=== PATIENT | male | born 1995 | race Caucasian/White ===

== ENCOUNTER 2024-03-01 08:28 | Inpatient (IN) | payer MEDICAID, OTHER, SELFPAY ==
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
[2024-03-01] MEDS: LORazepam 2 MG/ML VIAL IM (09:09)
[2024-03-01] MEDS: diphenhydrAMINE HCL 50 MG/ML VIAL 25 MG IM (09:09)
[2024-03-01] MEDS: Haloperidol Lactate 5 MG/ML VIAL IM (09:09)
[2024-03-01 09:13] VITALS: RESP 18; BMI 25.1
[2024-03-01 09:19] VITALS: RESP 18
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
[2024-03-01 10:30] VITALS: RESP 18
--- NOTE | 2024-03-01 10:35 | PC.NURSE ---
unable to obtain med history from patient at this time due to patient condition, attempt may be made later when patient is awake and cooperative
[2024-03-01 12:05] VITALS: RESP 18
[2024-03-01 14:08] VITALS: RESP 20
--- NOTE | 2024-03-01 14:09 | PC.NURSE ---
Patient continues to sleep, respirations even and unlabored. This RN attempted to wake patient for vital signs however, patient sleeping very deep, snoring loudly, will hold off on full set of vitals to avoid angering/triggering patient. CARE team and provider aware
[2024-03-01 15:48] VITALS: RESP 18
--- NOTE | 2024-03-01 16:23 | PC.NURSE ---
Patient refusing vital signs. Patient seen moving around in bed on security camera however, when this RN approached patient in his room, he lays still, appears to be pretending to sleep. Unable to obtain full sets of vital signs, complete lab work or do other parts of our assessment at this time. Provider aware, CARE team aware. Resting silently on stretcher, respirations observed to be even and unlabored, no apparent distress at this time
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
--- NOTE | 2024-03-01 23:53 | PC.NURSE ---
Assumed care of pt at 2300. PT currently laying in bed, eyes closed and appears to be sleeping. Plan of care on going.
[2024-03-02] VITALS (15 sets, daily range): BP systolic 149; BP diastolic 90–93; PULSE 64–74; RESP 16–18; TEMP 36.6; O2SAT 96–100
--- NOTE | 2024-03-02 05:29 | PC.NURSE ---
PT appeared to be sleeping throughout the night, no behavioral issues as of this time. Plan of care ongoing.
--- NOTE | 2024-03-02 05:31 | PC.NURSE ---
PT appeared to be sleeping throughout the night, eyes closed, Resp even and unlabored. No behavioral issues as of this time. Plan of care ongoing.
[2024-03-02] MEDS: LORazepam 2 MG/ML VIAL IM (07:00)
[2024-03-02] MEDS: Haloperidol Lactate 5 MG/ML VIAL 10 MG IM (07:00)
[2024-03-02] MEDS: diphenhydrAMINE HCL 50 MG/ML VIAL IM (07:00)
--- NOTE | 2024-03-02 07:37 | PC.NURSE ---
At 0650 the patient was observed with escalating behaviors that were destructive to self, others and milieu. The patient became aggressive and demanding with staff. Security heard the commotion from their office and entered the pod for support. The patient was observed flipping a chair in his room. The MD arrived in the pod and attempted to therapeutically communicate with the patient who was not receptive. When trying to communicate with the patient he became very agitated and threatening, lunging at a member of security. At that point it became necessary to restrain the patient in 4-point Velcro restraints for safety. The MD ordered Ativan 2mg IM once, Haldol 10mg IM once and Benadryl 50mg IM once. Medication was administered to the patient without harm to the patient or staff. At this time the patient remains in restraints for safety. Will continue plan of care.
--- NOTE | 2024-03-02 08:16 | PC.NURSE ---
Addendum entered by Toma Resendez 03/02/24 08:19: patient repeatedly offered food/drink. Patient refused from this RN. circulation checked in extremities, no issues noted. Patient reporting increased anxiety. This RN attempted to verbally de-escalate patient and explain the criteria for restraint release such as calm behaviors, and non-threatening conversation. This RN turned TV on for patient as distraction. Original Note: patient continues to exhibit unsafe behaviors. Attempting to slip out of restraints. At approximately 0805 patient slipped hand out of left upper extremity restraint and began attempting to take the upper right extremity restraint off. Partha PCT and security at bedside immediately to re-restraint patient. Patient continues to be verbally threatening, uncooperative. patient is of substantial risk for elopement or staff harm if released from restraints at this time. OLEG Dumont and MD aware and in agreeance with plan of care for patient remain in restraints until more calm.
--- NOTE | 2024-03-02 08:29 | PC.NURSE ---
Patient continuing to verbally escalate, OLEG Dumont requested additional medication from . Dr. Romo ordered 10mg IM Zyprexa.
[2024-03-02] MEDS: OLANZapine 10 MG VIAL IM (08:30)
--- NOTE | 2024-03-02 08:30 | PC.NURSE ---
At 0825 the patient was observed to be agitated, verbally aggressive and threatening. The patient was already in 4-point Velcro restraints, but continually attempts to slip restraints with 1 successful attempt, remove his left hand. Security and staff were able to safely re-restrain the patients left hand. The patient was then observed to intermittently bang his head against the wall. The MD was made aware of the patients presentation and behavior. MD ordered Zyprexa 10mg IM once. Medication was administered safely without incident. Will continue with plan of care.
--- NOTE | 2024-03-02 09:20 | PC.NURSE ---
0915: Patient continues to be verbally aggressive, attempting to remove restraints. BRANDI Chavis in patient's room attempting to take vital signs. patient unwilling to stay still enough for vital signs, unable to obtain pulse ox or blood pressure. Patient yelling let me the fuck out of here . Partha pipe testing technician attempted to explain process for restraint release with this RN however, patient continues to yell over staff
[2024-03-02] MEDS: Ketamine HCl 500 MG/5 ML VIAL 50 MG IM (09:40)
[2024-03-02 10:05] LABS: MANUAL DIFF FLAG NO
[2024-03-02 10:06] LABS: Basophils Percent Auto 0.3 % (0-2); Eosinophils Percent Auto 0.3 % (0-4); Hematocrit 44.8 % (42.0-52.0); Hemoglobin 15.2 g/dl (14.0-18.0); Imm Gran Abs Auto 0.04 X10*3/uL (0.00-0.03); Imm Gran Pct Auto 0.3 % (0.0-0.4); Lymphocytes Absolute Auto 1.2 X10*3/uL (1.2-4.9); Lymphocytes Percent Auto 9.2 % (20-40); Mean Corpuscular HGB Conc 33.9 g/dl (31.0-36.0); Mean Corpuscular Hemoglobin 28.7 pg (27.0-33.0); Mean Corpuscular Volume 84.5 fL (80.0-98.0); Mean Platelet Volume 8.9 fL (9.4-12.4); Monocytes Absolute Auto 0.4 X10*3/uL (0.1-1.2); Monocytes Percent Auto 3.1 % (2-11); Neutrophils Absolute Auto 10.9 x10*3/uL (2.0-8.3); Neutrophils Percent Auto 86.8 % (45-73); Platelet Count 343 X10*3/uL (160-400); Red Cell Distribution Width 13.4 % (11.0-16.0); White Blood Count 12.6 X10*3/uL (4.8-10.8)
[2024-03-02 10:40] LABS: Alanine Aminotransferase 19 U/L (0-40); Albumin Level 4.4 g/dL (3.5-5.0); Alkaline Phosphatase 93 U/L (39-117); Anion Gap 14 (12-20); Aspartate Amino Transferase 50 U/L (5-37); Bilirubin Total 0.4 mg/dL (0.0-1.0); Blood Urea Nitrogen 9 mg/dL (9-16); Calcium 9.7 mg/dL (8.4-10.2); Carbon Dioxide 26 mmol/L (22-29); Chloride 108 mmol/L (96-108); Creatinine Clr Calc Pharmacy 128.5; Estimated Glomerular Filt Rate > 60; Ethanol < 10 mg/dL; Glucose Random 105 mg/dL (60-115); Magnesium 2.2 mg/dL (1.6-2.6); Potassium 3.6 mmol/L (3.3-5.1); Salicylate < 5.0 mg/dL (15-30); Sodium 144 mmol/L (135-145); Total Protein 7.9 g/dL (6.5-8.0)
[2024-03-02 10:42] LABS: COVID-19 Test Negative (Negative); IDNOW Serial# 08D9AD1C
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
--- NOTE | 2024-03-02 12:00 | PC.NURSE ---
RE: Restraint Episode Length of time in restraints: 3 hours 15 minutes Medications administered: -0700: 2mg Ativan IM, 10mg Haldol IM, 50 mg Benadryl IM -0830: 10mg Zyprexa IM -939: 50 mg Ketamine IM Summary: Patient woke up at approximately 0645, ambulated independently to the bathroom, while in the bathroom, was verbally escalating and screaming I need to get the fuck outta here, yall motherfuckers gotta let me out . Pt exited bathroom and began yelling staff, demanding to be let out. Security present. This RN spoke with Dr. Angel who ordered IM medications and came to speak with patient. Patient continued to verbally escalate, with security and MD. Patient lunged at security staff member and patient was subsequently four point restrained. Over the first hour of being restrained patient continued to be verbally aggressive and threatening towards staff, threatening to harm himself. He was also observed attempting to break out of the restraints. This RN and Tim RN approached patient multiple different times to attempt to verbally de-escalate patient. This RN loosened upper restraints for circulation. At about 0805, patient slipped out of his upper left extremity restraint, Partha simulation tech and security at bedside an re-restrained the patient. Patient continued to be verbally threatening, attempting to remove restraints. MD Galey aware and at bedside to evaluate patient. placed order for 10mg Zyprexa IM to be given to attempt to calm patient down. Patient received medication and continued to yell at staff, requesting to be let out. Staff encouraged him to practice breathing techniques to manage anxiety and provided him with water. Patient continued to try to remove himself from restraints despite verbally redirection. Occasionally taking breaks and laying down but continued to whip arms and legs around attempting to remove restraints. Patient attempted to hit back of the head on the wall, pillow placed between him and the wall to prevent injury. At around 0930, was consulted for additional medication due to additional increased agitation. MD came to speak with patient, patient refusing to participate in assessment or conversation, continually yelling get me the fuck out of these restraints . explained criteria for restraint release, pt unwilling to participate in conversation once again. ordered 50mg IM Ketamine. Tim RN, this RN and security at bedside for administration. Patient received IM and started to calm down. Once patient was calm enough, this RN corie his blood work without issue and took vital signs. At 1000, upper extremity restraints removed by security at 1008, lower extremity restraints removed by this RN At around 1023, this RN attempted to take another blood pressure, patient awakened easily and refused blood pressure, allowed this RN to take pulse ox Patient continues to sleep at this time, although easily awakened, no apparent distress is noted, patient provided with water at bedside and blanket. Continue plan of care for patient to remain on Section 12a for safety
--- NOTE | 2024-03-02 12:25 | PC.NURSE ---
Patient's mother stopped by asked if she could bring him a cake and balloons for his birthday. This RN let mother know that right now is not ideal for a visit and that she unfortunately cannot bring in a cake/balloons. Mother understanding of situation. Left her number with this RN [phone]
--- NOTE | 2024-03-02 17:45 | PC.NURSE ---
Patient ambulated to bathroom independently, refused urine sample, ambulated back to room and went back to sleep, respirations even and unlabored, no apparent distress noted
--- NOTE | 2024-03-02 19:04 | PC.NURSE ---
patient appears to remain at rest at present respirations are even and unlabored patient appears in no distress.
[2024-03-03] VITALS (7 sets, daily range): BP systolic 119–134; BP diastolic 86–90; PULSE 88–99; RESP 16–18; TEMP 36.6–37.1; O2SAT 96–100; BMI 24.7
--- NOTE | 2024-03-03 | ECG_ITS ---
Test Reason : check qt Blood Pressure : / mmHG Vent. Rate : 065 BPM Atrial Rate : 065 BPM P-R Int : 148 ms QRS Dur : 088 ms QT Int : 396 ms P-R-T Axes : 063 066 042 degrees QTc Int : 411 ms Normal sinus rhythm Normal ECG When compared with ECG of 25-MAY-2015 10:31, No significant change was found Referred By: Tatyana Loera Electronically Signed By:BISHOP DIETZ MD
[2024-03-03 08:29] LABS: Amphetamine Screen Urine Not Detected (Not Detect); Barbiturates, Urine Not Detected (Not Detect); Benzodiazepines Screen Urine Not Detected (Not Detect); Buprenorphine Scr Not Detected (Not Detect); Cannabinoid Screen Urine POSITIVE (Not Detect); Cocaine Screen Urine POSITIVE (Not Detect); Fentanyl, urine POSITIVE (Not Detect); Methadone Screen, Urine Not Detected (Not Detect); Opiate Screen Urine Not Detected (Not Detect); Oxycodone Screen Urine Not Detected (Not Detect); Phencyclidine Screen Urine Not Detected (Not Detect)
[2024-03-03 08:32] LABS: Appearance Urine Clear; Color Urine Dark Yellow; Glucose Urine UA Negative (Negative); Leukocyte Esterase Urine Trace (Negative); Nitrite Urine Negative (Negative); Specific Gravity - Urine >= 1.030 (1.005-1.025); UMIC TRIGGER UACC YES; Urine Blood Negative (Negative); Urine Ketones >=160 mg/dL (Negative); Urine Protein Trace mg/dL (Neg-Trace)
[2024-03-03 08:37] LABS: Bacteria Urine None Seen (None Seen); Hyaline Casts Urine 0-2 /LPF (0-2); RBC Urine 0-2 /HPF (0-2); Squamous Epithelial Cell Urine 0-2 /HPF (0-2); UACC Culture Trigger YES
[2024-03-03] MEDS: hydrOXYzine HCL 25 MG TABLET PO (15:46)
--- NOTE | 2024-03-03 15:49 | PC.NURSE ---
Pt reported tightness in neck, difficulty talking and sore throat. No visible signs of anaphylaxis noted. Jean-Pierre Triplett MD made aware, Hydroxyzine given per Uziel. Pt took without issue.
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
[2024-03-04 07:57] VITALS: BP 131/78; PULSE 90; RESP 16; TEMP 36.7; O2SAT 97
[2024-03-04 09:00] LABS: Estimated Average Glucose 100 mg/dL; Hemoglobin A1c % 5.1 % (<6.0)
[2024-03-04 09:18] LABS: Cholesterol 144 mg/dL (<200); HDL Cholesterol 38 mg/dL (>40); LDL Cholesterol Calculated 85 mg/dL (<100); Triglycerides 109 mg/dL (<150)
[2024-03-04 09:33] LABS: Free T4 (Free Thyroxine) 0.85 ng/dL (0.71-1.85); Thyroid Stimulating Hormone 0.66 uIU/mL (0.32-4.0)
[2024-03-04 09:47] LABS: Folate 6.7 ng/mL (> or = 4.0); Vitamin B12 887 pg/mL (200-900)
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
== END 2024-03-04 14:21 | disposition home or self-care (01) | DRG 773 ==
LOC: HO.ED 03-02 06:52 → HO.PADLT16 03-03 13:48
PROVIDERS: Emergency Medicine; Physician Assistant Medical; Admitting Provider Psychiatry & Neurology Psychiatry; Emergency Provider Emergency Medicine Emergency Medical Services; Visit Provider Psychiatry & Neurology Psychiatry
DX: F19.959 Other psychoactive substance use, unspecified with psychoactive substance-induced psychotic disorder, unspecified (principal); F11.90 Opioid use, unspecified, uncomplicated; R45.851 Suicidal ideations; F14.90 Cocaine use, unspecified, uncomplicated; F12.90 Cannabis use, unspecified, uncomplicated; Z20.822 Contact with and (suspected) exposure to COVID-19
CPT/HCPCS: 36415; 80053; 80061; 80179; 80307; 81001; 82607; 82746; 83036; 83735; 84439; 84443; 85025; 87086; 87635; 93005; 99285; J1200; J1630; J2060; J2359; S9485

== ENCOUNTER → 2024-03-01 14:45 | Outpatient (BNV) | payer OTHER, SELFPAY | PROVIDERS: Emergency Provider Emergency Medicine Emergency Medical Services; Visit Provider Psychiatry & Neurology Psychiatry | DX: F19.959 Other psychoactive substance use, unspecified with psychoactive substance-induced psychotic disorder, unspecified (principal) | CPT/HCPCS: 99233; 99499 ==

== ENCOUNTER → 2024-03-03 11:05 | Outpatient (BNV) | payer MEDICAID, SELFPAY | PROVIDERS: Admitting Provider Psychiatry & Neurology Psychiatry; Emergency Provider Emergency Medicine Emergency Medical Services; Visit Provider Internal Medicine Cardiovascular Disease | DX: Z51.81 Encounter for therapeutic drug level monitoring (principal) | CPT/HCPCS: 93010 ==

== ENCOUNTER 2024-03-09 18:16 | Emergency (ER) | payer OTHER, SELFPAY ==
[2024-03-09] MEDS: Haloperidol Lactate 5 MG/ML VIAL IM (18:56)
[2024-03-09] MEDS: diphenhydrAMINE HCL 50 MG/ML VIAL IM (18:56)
[2024-03-09] MEDS: LORazepam 2 MG/ML VIAL IM (18:56)
[2024-03-09 19:00] VITALS: BP 129/41; PULSE 120; RESP 20; O2SAT 99
[2024-03-09 19:10] VITALS: BP 146/70; PULSE 126; O2SAT 100
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
[2024-03-09 19:15] VITALS: BP 134/78; PULSE 108; RESP 18; O2SAT 96
[2024-03-09 19:55] VITALS: BMI 29.9
--- NOTE | 2024-03-09 19:56 | PC.NURSE ---
Assumed care for pt at 1900. Pt is in four point restraints with 1:1 sitter at bedside. At 1920 all restraints removed as pt is sleeping at the bedside with no signs of aggression or combative. +CMS. No injuries to extremities. At 1930 change director completed by security. Black sock with hard substance inside removed from pts underwear by security. Pts belongings secured in locker.
[2024-03-09 20:56] VITALS: BP 152/92; PULSE 94; RESP 14; O2SAT 99
--- NOTE | 2024-03-10 00:38 | PC.NURSE ---
Pt is awake, calm, and ambulating with steady gait to the bathroom. Declined to provide urine sample at this time. Pt returned to the bedside with no incidence. Monitoring is ongoing.
--- NOTE | 2024-03-10 01:28 | ED.PSYCH ---
HPI - Psych General Chief Complaint: Psychiatric Symptoms Stated Complaint: SECT 12, CRISIS, PD ON BOARD,PT. RESTRAINED Time Seen by Provider: 03/09/24 18:25 Source: patient and EMS Mode of arrival: EMS Limitations: other History of Present Illness HPI Narrative: Patient with substance induced psychotic disorder using cocaine and fentanyl was seen here on 03/02 admitted discharged section 12 in the community as he was acting vague jumping on the roof of condo aggressive and combative denied any PCP use denied any SI wanted to talk to psychiatrist denied SI Related Data Home Medications ?Medication ?Instructions ?Recorded ?Confirmed No Known Home Meds 03/04/24 03/04/24 Allergies Allergy/AdvReac Type Severity Reaction Status Date / Time No Known Allergies Allergy Verified 03/09/24 19:56 Review of Systems Review of Systems: Yes Other (Patient refused) [facility] Social History Social History Household Members: Other Household Members Other:: mom Housing: Apartment Do you presently have visiting nurse or other home services: No Unable to assess alcohol history related to: Refusing to respond Patient Tobacco Use Status: Never used Tobacco e-Cigarette/Vaping Use: Never Used Substance Use Type: Crack/Cocaine, Marijuana and Other Advance Directives: No Advance Directives Information Provided: No service: No Sexual orientation: Straight/Heterosexual Physical Exam Vital Signs: Vital Signs: Last Vital Signs Pulse 94 03/09/24 20:56 Resp 14 03/09/24 20:56 BP 152/92 H 03/09/24 20:56 Pulse Ox 99 03/09/24 20:56 O2 Del Method Room Air 03/09/24 20:56 BMI result Body Mass Index 29.9 Appearance: Alert. Oriented X3. No acute distress. Aggressive noncompliant during examination Eyes: PERRLA, No Nystagmus ENT: Pharynx normal. Oral Mucosa moist Neck: Normal inspection. Neck supple. CVS: Normal heart rate and rhythm. Pulses normal. Respiratory: No respiratory distress. Equal air entry bilateral, no wheezing/rales/rhonchi Abdomen: Soft and nontender. Bowel sounds are present, no mass palpable, no CVA tenderness Skin: Skin warm and dry. Normal skin color. Normal skin turgor. Extremities: No lower extremity edema. No calf tenderness psych: Agitated denies any hallucination or SI Neuro: Oriented X 3. No motor deficit. No sensory deficit.No cerebellar signs , cranial nerves II-XII intact Medications Administered Discontinued Medications Generic Name Dose Route Start Last Admin Trade Name Lindsay PRN Reason Stop Dose Admin Diphenhydramine HCl 50 mg 03/09/24 18:44 03/09/24 18:56 Diphenhydramine Hcl 50 Mg/Ml Vial IM 03/09/24 18:45 50 mg ONCE ONE Administration Haloperidol Lactate 5 mg 03/09/24 18:44 03/09/24 18:56 Haloperidol Lactate 5 Mg/Ml Vial IM 03/09/24 18:45 5 mg ONCE ONE Administration Lorazepam 2 mg 03/09/24 18:44 03/09/24 18:56 Lorazepam 2 Mg/Ml Vial IM 03/09/24 18:45 2 mg ONCE ONE Administration Medical Decision Making Medical Decision Making [facility] Narrative: Patient with substance induced psychotic disorder will get care team involved previously patient's urine positive positive for fentanyl and cocaine patient denied any use of PCP will get care team involved already has Section 12 Discharge Plan Discharge Clinical Impression: Substance-induced psychotic disorder Patient Disposition: Still a Patient Prescriptions: No Action No Known Home Meds Print Language: Italian
[2024-03-10 02:00] VITALS: RESP 14
--- NOTE | 2024-03-10 02:07 | PC.NURSE ---
Pt sleeping at the bedside. No apparent distress noted. Breaths are even regular and unlabored. Monitoring is ongoing.
--- NOTE | 2024-03-10 06:53 | PC.NURSE ---
Assumed care of patient. Patient is observed sleeping in his bed. No distress observed. Breathing is even and unlabored. Will continue plan of care.
--- NOTE | 2024-03-10 09:34 | PC.NURSE ---
Behavioral Observation Patient woke up at approx 0925. Patient came to the nurses station requesting to leave. PT requested to see the MD who discharged him from his previous admission. PT refusing labs and medical clearance at this time. Will continue with plan of care.
[2024-03-10 09:37] VITALS: RESP 18
--- NOTE | 2024-03-10 09:50 | PC.NURSE ---
Behavioral observation Patient is observed with increasing agitation. The patient is refusing to listen to staff and told a staff member You're making me real mad when staff was trying to inform PT on procedure to be medically cleared. Security was called for a show of support. PT Still requesting to speak to the doctor who discharged him on his last admission.
--- NOTE | 2024-03-10 12:30 | MHC.CARE ---
CARE Team met with patient, disposition is to discharge, behavior appears to be related to substance use. ED provider, Dr. Humphrey updated and in agreement with plan.
[2024-03-10 12:38] VITALS: BP 152/92; PULSE 94; RESP 14; TEMP -17.7; TEMP 0; O2SAT 99
== END 2024-03-10 12:41 | disposition home or self-care (01) ==
PROVIDERS: Emergency Provider Internal Medicine
DX: F19.159 Other psychoactive substance abuse with psychoactive substance-induced psychotic disorder, unspecified (principal)
CPT/HCPCS: 96372; 99284; 99285; J1200; J1630; J2060; S9485